=== PATIENT | female | born 1980 | race Caucasian/White ===

== ENCOUNTER 2018-02-10 22:42 | Emergency (ER) | payer OTHER, SELFPAY ==
[2018-02-10 22:43] VITALS: BP 167/109; PULSE 96; RESP 20; TEMP 36.6; O2SAT 96; BMI 56.7
--- NOTE | 2018-02-10 23:37 | ED.VISSUMM ---
- ER Visit Summary Date of Service: 02/10/18 Chief Complaint: Back pain History of Present Illness: The patient is a 37 F who presents with lower back pain. She does have a history of prior back pain with herniated disks but states this feels somewhat different. 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 This is only mild at rest but becomes more moderate with movement. Currently it is 4 out of 10 but when she goes to move it is slightly worse at 5-6 out of 10. She denies any fevers abdominal pain radiation to legs numbness tingling weakness. Physical Examination: Afebrile vitals are unremarkable Patient is resting comfortably Patient does have some paraspinal lumbar tenderness no midline tenderness straight leg raise is negative bilaterally she has normal strength and sensation of lower extremities Test Results: Not indicated Emergency Department Course and Treatment: History and examination are consistent with a lumbosacral strain. I explained supportive care to the patient and she is in agreement with this plan. She will follow-up as an outpatient and was discharged home. Treatment Plan: [] Disposition: Discharge Impression: Lumbosacral strain This note was generated with [employer] dictation software. It may contain incorrect words, spelling, and punctuation that were not noted in review of the chart prior to signing ED Disposition - Plan for ED Patient: Chief Complaint: Back Referrals: Care Physician,No Primary [Primary Care Provider] -
--- NOTE | 2018-02-10 23:39 | DCINST.ED_ITS ---
ED Disposition - Plan for ED Patient: Chief Complaint: Back Instructions: ED Sprain Strain Lumbar Referrals: Care Physician,No Primary [Primary Care Provider] - Corporate,[facility] [GROUP OF PHYSICIANS] -
[2018-02-11 00:01] VITALS: PULSE 68; RESP 18; O2SAT 97
== END 2018-02-11 00:02 | disposition home or self-care (01) ==
LOC: ED 23:48
PROVIDERS: Emergency Provider Emergency Medicine
DX: S39.012A Strain of muscle, fascia and tendon of lower back, initial encounter (principal); X50.1XXA Overexertion from prolonged static or awkward postures, initial encounter; Y93.9 Activity, unspecified; Y92.9 Unspecified place or not applicable
CPT/HCPCS: 99282

== ENCOUNTER → 2018-02-12 10:43 | Outpatient (CLI) | payer OTHER, SELFPAY ==
--- NOTE | 2018-02-12 10:47 | RAD_ITS ---
STUDY: X-RAY - LUMBAR SPINE REASON FOR EXAM: Female, 37 years old. Injury at work. Pain. TECHNIQUE: 3 view(s) of the lumbar spine were obtained. COMPARISON: None FINDINGS: Normal lumbar lordosis. There is a mild levoscoliosis of the lumbar spine. There is a normal alignment of the vertebrae. There is diffuse mild demineralization with multilevel mild endplate spondylosis. There is at L5-S1 degenerative disc disease with mild disc space narrowing. There is lower lumbosacral facet mild arthrosis. There is no demonstrated fracture. There is increased colonic/rectosigmoid stool volume. RAD/Lumbar Spine 2 or 3 Views IMPRESSION: 1. Degenerative changes of the L5-S1 spine, as above. 2. No demonstrated acute osseous injury or vertebral subluxation. 3. Mild lumbar levoscoliosis. Electronically Signed: Gabino Singh MD at 11:12 EDT Tel , Service support ,
== END ==
PROVIDERS: Referring Provider Physician Assistant; Visit Provider Physician Assistant
DX: S39.012A Strain of muscle, fascia and tendon of lower back, initial encounter (principal)
CPT/HCPCS: 72100

== ENCOUNTER 2023-02-06 11:05 | Day surgery (SDC) | payer OTHER, SELFPAY ==
[2023-02-06 11:34] LABS: Internal QC Validated? YES +Cl - CLEAR BKGD; Pregnancy, Urine Negative Negative
[2023-02-06 11:40] VITALS: BP 145/89; PULSE 82; RESP 16; TEMP 36.4; O2SAT 97; BMI 54.1
[2023-02-06] MEDS: Lactated Ringers 1,000 ML 15 ML IV (11:40)
[2023-02-06 12:01] LABS: Bedside Glucose 90 mg/dL (74-106)
[2023-02-06] MEDS: Cefazolin 3 GM in 0.9% Normal Saline (100mL Bag) 100 ML IV (12:32)
[2023-02-06] MEDS: Bupivacaine Mpf 0.5% 30 ML VIAL (13:31)
[2023-02-06] MEDS: Epinephrine (1 mg/ml) 1 MG/ML VIAL ×2 (13:32)
[2023-02-06 13:51] VITALS: BP 145/89; BP 163/95; PULSE 85; RESP 16; TEMP 36.4; O2SAT 96
[2023-02-06 14:00] VITALS: BP 145/89; BP 160/96; PULSE 85; RESP 16; O2SAT 95
--- NOTE | 2023-02-06 14:04 | PCM.OPRPT ---
Report of Operation Date of Procedure: 02/06/23 Pre-Operative Diagnosis: Internal derangement right knee Post-Operative Diagnosis: none. Unable to do an arthroscopy on the knee Surgery/Procedure Performed:: Attempted right knee arthroscopy. Aborted secondary to the patients obesity. Description of Surgical Findings:: Report of Operation Date of Procedure: 02/06/2023 Preoperative Diagnosis: Right knee, internal derangement Postoperative Diagnosis: Right knee, alhaji. Unable to do an arthroscopy on this patients knee. Operation: Diagnostic and operative arthroscopy of the right knee with arthroscopic Surgeon: Dr Walter Ashton DO Anesthesia: general Anesthesiologist: Blake Mcfarlane M.D. Description of Procedure: With appropriate informed consent, the patient was taken to the operative suite. After induction of general and regional anesthesia and administration of the preoperative antibiotics, the well leg was fitted with DANETTE and SCDs and well padded. The right knee was placed into the arthroscopy leg smith, prepped and draped sterilely. The standard arthroscopy portals were pre-injected with 0.5% Marcaine with epinephrine. A lateral portal was established. The diagnostic arthroscopy was begun. The patellofemoral joint revealed The medial compartment was entered and the medial portal was established. A probe was utilized to probe the medial meniscus. There was I made a lateral portal and attempted to perform an arthroscopy on this knee. Unfortunately, there was such extensive excess soft tissue that I was unable to visualize the distal femur, the menisci or the tibia. I was able to visualize the patella. Using needle localization, an accessory suprapatellar portal was made I cleared soft-tissue with a thermal ablation wand, vut was still unable to attain visualization. The decision was made to end the procedure at this point. Thereafter, the arthroscopy instruments and fluid were removed. The portals were closed with interrupted sutures of 4-0 nylon followed by application of a sterile well-padded dressing and VELASQUEZ wrap. The patient was extubated and transferred to the PACU in stable and satisfactory condition. Walter Ashton DO Surgeon: Walter Ashton Type of Anesthesia: General Anesthesiologist: Blake Mcfarlane Admclayton VTE Documentation VTE Present on Admission: No VTE Mechan Device Prophylaxis: SCD's and Thigh High DANETTE Hose VTE Pharm Prophylaxis ordered?: No Reason prophylaxis not ordered:: Treatment Not Indicated
[2023-02-06 14:14] LABS: Bedside Glucose 103 mg/dL (74-106)
[2023-02-06 14:15] VITALS: BP 145/89; BP 167/101; PULSE 80; RESP 16; O2SAT 98
[2023-02-06 14:20] VITALS: BP 145/89; BP 162/97; PULSE 76; RESP 16; TEMP 36.6; O2SAT 96
[2023-02-06 14:45] VITALS: BP 145/89
== END 2023-02-06 15:20 | disposition home or self-care (01) ==
LOC: SDC 11:06 → AC 11:08
PROVIDERS: Anesthesiology; PCP Nurse Practitioner Family; Referring Provider Orthopaedic Surgery; Visit Provider Orthopaedic Surgery
PROC: (CPT 29870; principal; 2023-02-06 12:25)
DX: M23.91 Unspecified internal derangement of right knee (principal); E66.01 Morbid (severe) obesity due to excess calories; Z68.43 Body mass index [BMI] 50.0-59.9, adult; E11.9 Type 2 diabetes mellitus without complications; J45.909 Unspecified asthma, uncomplicated; K21.9 Gastro-esophageal reflux disease without esophagitis; I10 Essential (primary) hypertension; Z87.891 Personal history of nicotine dependence; Z53.09 Procedure and treatment not carried out because of other contraindication; S83.231D Complex tear of medial meniscus, current injury, right knee, subsequent encounter; M17.11 Unilateral primary osteoarthritis, right knee; S83.281D Other tear of lateral meniscus, current injury, right knee, subsequent encounter; M25.461 Effusion, right knee
CPT/HCPCS: 29870; 01382; 81025; 82962; J7120; J2405

== ENCOUNTER 2023-05-11 11:44 | Day surgery (SDC) | payer OTHER, SELFPAY ==
[2023-05-11] VITALS (9 sets, daily range): BP systolic 132–177; BP diastolic 79–101; PULSE 71–90; RESP 16; TEMP 36.4–36.6; O2SAT 94–100; BMI 52.9
--- OUTSIDE RECORDS SUMMARY | 2023-05-11 12:07 | XMS RPT_ITS | CCD ---
Author Name Unknown Address [address] [place] [address] Organization [facility] Care Team Providers Care Tree Trimmer Helper Name Role Phone YUDI Odom CNP, JUAN JOSE Fuller [facility] YUDI CLEANING - MARYSOL, JUAN JOSE Fuller Primary Care U navailable YUDI CLEANING - MARYSOL, JUAN JOSE Fuller Attending U navailable YUDI CLEANING - MARYOSL, JUAN JOSE Fuller Primary Care U navailable SALVATORE GRAY Attending Unavailable YUDIMAX CLEANING - MARYSOL, JUAN JOSE Fuller Primary Care U navailSALVATORE Jara Attending Unavailable YUDI CLEANING - MARYSOL, JUAN JOSE Fuller Primary Care U navailable YUDI [employer] REVENUE OFFICER - FORM SETTER SUPERVISOR, JUAN JOSE Fuller Attending U navailable YUDI [employer]. REVENUE OFFICER - FORM SETTER SUPERVISOR, JUAN JOSE Fuller Primary Care U navailable YUDI BLACK - MARYSOL, JUAN JOSE Fuller Attending U navailable Allergies Allergy Classification Reported Allergen(s) Allergy Type Date of Onset Reaction(s) Facility (7 sources) Vancomycin; Translations: [vancomycin] Drug Allergy RASH [facility] Medications Current Medications Medication Drug Class(es) Dates Sig (Normalized) Sig (Original) busPIRone hydrochloride 5 mg oral tablet (1 source) Start: 08-15-2022 End: 02-11-2023 busPIRone 5 mg oral tablet Dose : 5 mg = 1 tab(s), Oral, TID, PRN PRN Anxiety, # 90 tab(s), 5 Refill(s), Pharmacy: [facility] #[id number], ROMA, 158, cm, 08/15/22 11:18:00 EDT, Height, kg, 08/15/22 11:18:00 EDT, Dosing Weight Start Date: 08/15/22 Stop Date: 02/11/23 Status: Ordered cholecalciferol 1.25 mg oral capsule (3 sources) Vitamin D Start: 11-14-2022 End: 08-20-2023 cholecalciferol 1250 mcg (50,000 intl units) oral capsule Dose : 50,000 International_Unit = 1 cap(s), Oral, qWeek, # 13 cap(s), 1 Refill(s), Pharmacy: [facility] #[id number], Vitamin D deficiency, 159, cm, 02/20/23 7:24:00 EDT, Height, kg, 02/20/23 7:24:00 EDT, Dosing Weight Start Date: 02/21/23 Stop Date: 08/20/23 Status: Ordered Cinnamon Plus Chromium oral capsule (7 sources) Start: 08-13-2020 take 1 capsule by mouth once daily Cinnamon Plus Chromium oral capsule Dose = 1 cap(s), Oral, Daily, with biotin, 0 Refill(s) Start Date: 08/13/20 Status: Ordered citalopram 40 mg oral tablet (7 sources) Serotonin Reuptake Inhibitor Start: 08-15-2022 End: 08-19-2023 citalopram 40 mg oral tablet Dose : 40 mg = 1 tab(s), Oral, qDay, # 90 tab(s), 1 Refill(s), Pharmacy: [facility] #[id number], 159, cm, 02/20/23 7:24:00 EDT, Height, kg, 02/20/23 7:24:00 EDT, Dosing Weight Start Date: 02/20/23 Stop Date: 08/19/23 Status: Ordered Completed/Discontinued Medications Medication Drug Class(es) Dates Sig (Normalized) Sig (Original) gabapentin 300 mg oral capsule (2 sources) Anti-epileptic Agent Start: 08-12-2021 End: 08-26-2021 gabapentin 300 mg oral capsule Dose : 300 mg = 1 cap(s), Oral, BID, Fill Date: 08/12/2021 DOSE CHANGE, # 28 cap(s), 0 Refill(s), Pharmacy: [facility] Radicular pain of left lower extremity Chronic back pain, 160, cm, 08/12/21 8:41:00 EDT, Height, 146 Start Date: 08/12/21 Stop Date: 08/26/21 Status: Ordered Problems Problem Classification Problem Date Documented Date Episodic/Chronic Abdominal pain (3 sources) Epigastric pain 11-14-2022 Episodic Anxiety disorders (7 sources) Anxiety 06-18-2020 Chronic Asthma (7 sources) Asthma 06-30-2013 Chronic Diabetes mellitus without complication (3 sources) Type 2 diabetes mellitus 11-14-2022 Chronic Disorders of lipid metabolism (3 sources) Mixed hypercholesterolemia and hypertriglyceridemia 11-14-2022 Chronic Esophageal disorders (4 sources) Esophageal dysmotility; Translations: [Gastroesophageal reflux disease with hiatal hernia] 12-05-2022 Chronic Joint disorders and dislocations; trauma-related (5 sources) Subluxation of knee joint; Translations: [Tear of meniscus of knee] 08-15-2022 Episodic Results Test Name Value Interpretation Reference Range Facil ity Encounters Encounter Date Encounter Type Care Provider Facility Start: 05-02-2023 ambulatory JUAN JOSE SANTANA [employer] REVENUE OFFICER - FORM SETTER SUPERVISOR Facility:B Start: 05-02-2023 End: 05-02-2023 Patient encounter procedure SALVATORE MCNEIL [facility] Start: 02-18-2023 End: 02-19-2023 ambulatory JUAN JOSE BAGLEY [employer] REVENUE OFFICER - FORM SETTER SUPERVISOR Facility:[facility] Start: 01-25-2023 End: 01-26-2023 ambulatory JUAN JOSE BAGLEY [employer] REVENUE OFFICER - FORM SETTER SUPERVISOR Facility:[facility] Start: 01-25-2023 End: 01-25-2023 Patient encounter procedure SALVATORE MCNEIL [facility] Start: 11-25-2022 End: 11-26-2022 ambulatory JUAN JOSE BAGLEY [employer] REVENUE OFFICER - FORM SETTER SUPERVISOR Facility:[facility] Start: 11-25-2022 End: 11-25-2022 Patient encounter procedure JUAN JOSE BAGLEY [employer] REVENUE OFFICER - FORM SETTER SUPERVISOR [facility] Start: 11-04-2022 End: 11-05-2022 ambulatory JUAN JOSE Alina YUDI [employer] REVENUE OFFICER - FORM SETTER SUPERVISOR Facility:[facility] Start: 11-04-2022 End: 11-04-2022 Patient encounter procedure JUAN JOSE BAGLEY [employer] REVENUE OFFICER - FORM SETTER SUPERVISOR [facility] Start: 11-22-2021 End: 02-21-2022 Physical therapy management MICHELLE SAMPSON DO [facility] Start: 08-26-2021 End: 08-26-2021 Patient encounter procedure JUAN JOSE Alina YUDI [employer] REVENUE OFFICER - FORM SETTER SUPERVISOR [facility] Start: 07-05-2021 End: 07-09-2021 Outreach Lab ELE ALAS MD [facility] Procedures Date Procedure Procedure Detail Performing Clinician section ELE ALAS MD Rotator cuff includi ng muscles and tendons (body structure) ELE ALAS MD Immunizations Immunization Date Immunization Notes Care Provider [facility] 01-18-2009 influenza, seasonal, injectable, preservative free ELE ALAS MD [facility] Payers Date Payer Category Payer Unknown [id number] 1980 Unknown [id number] [id number] 1982 Unknown [id number] [id number] 1982 Unknown [id number] 2.16.8 [id number] 1982 Unknown [id number] 2.16.8 [id number] 1982 Unknown [id number] 2.16.8 [id number] Social History Date Type Detail Facility Start: 11-30-2018 Ex-smoker (finding) [facility] Clinical Notes 12-15-2021 to 11-25-2022 LaboratoryRadiologyLaboratoryLaboratoryRadiologyLaboratoryLaboratoryLaboratoryLa boratory Note Date & Type Note Facility 11-25-2022 Note ORIGINAL EXAMINATION: DOUBLE CONTRAST UPPER GI SERIES 11/25/2022 TECHNIQUE: Double contrast upper GI series was performed with barium and air contrast. FLUOROSCOPY DOSE AND TYPE: Radiation Exposure Index: Kerma mGy, 124 mGy. Fluoro time: 2.4 minutes. Fluoroscopic exposures: 10. COMPARISON: None HISTORY: ORDERING SYSTEM PROVIDED HISTORY: Reason for Exam: epigastric pain with cyclical vomiting & reflux FINDINGS: Assembly Loader images were obtained and show a nonobstructed bowel gas pattern. No acute process is seen on emissions testing technician images. The visualized distal esophagus is of normal caliber. A few tertiary contractions are seen on the basis of a dysmotility. There are no mucosal abnormalities seen. The gastroesophageal junction demonstrates a small sliding hiatal hernia. No stenoses or achalasia are seen.. Mild reflux to the inferior 1/3 of the esophagus is seen. The stomach is normal in appearance with no evidence for mass present. The duodenal bulb and sweep are normal. IMPRESSION: Small sliding-type hiatal hernia. Mild reflux to the inferior 1/3 of the esophagus. A few tertiary contractions of the esophagus are seen on the basis of a mild underlying dysmotility. Interpreted by: Brett Beltran MD Preliminary Report By: Brett Beltran MD Electronically signed By Brett Beltran MD Dictated Date: 11/25/2022 9:36:12 AM Prelim Date: 11/25/2022 9:40:45 AM Sign Date: 11/25/2022 9:40:45 AM Ordering Provider: JUAN JOSE BAGLEY [facility] 12-15-2021 Evaluation + Plan note Future Scheduled TestsThyroid Stimulating Hormone 12/15/21Complete Blood Count 12/15/21Lipid Profile 12/15/21Vitamin D Level 12/15/21Complete Metabolic Panel 12/15/21XR Hip Minimum 2 Views Left 08/03/21XR Hip Minimum 2 Views Left 08/12/21XR Knee 3 Views Left 08/03/21XR Knee 3 Views Left 08/12/21XR Spine Thoracic 2 Views 08/12/21XR Spine Lumbar AP/LAT 08/03/21XR Spine Lumbar W/Obliques 4 Views 08/12/21XR Spine Cervical AP/LAT 08/12/21 [facility] Evaluation + Plan note Future Appointments Appointment Date:12/16/2021 03:40:00 PM Scheduled Provider:JUAN JOSE BAGLEY APRN, CNP Location:[facility] Appointment Type:PC OV Future Scheduled TestsThyroid Stimulating Hormone 12/15/21Complete Blood Count 12/15/21Lipid Profile 12/15/21Vitamin D Level 12/15/21Complete Metabolic Panel 12/15/21 [facility] Evaluation + Plan note Future Appointments Appointment Date:12/16/2021 03:40:00 PM Scheduled Provider:JUAN JOSE BAGLEY APRN - FORM SETTER SUPERVISOR Location:[facility] Appointment Type:PC OV Future Scheduled TestsThyroid Stimulating Hormone 12/15/21Complete Blood Count 12/15/21Lipid Profile 12/15/21Vitamin D Level 12/15/21Complete Metabolic Panel 12/15/21XR Hip Minimum 2 Views Left 08/03/21XR Hip Minimum 2 Views Left 08/12/21XR Knee 3 Views Left 08/03/21XR Knee 3 Views Left 08/12/21XR Spine Thoracic 2 Views 08/12/21XR Spine Lumbar AP/LAT 08/03/21XR Spine Lumbar W/Obliques 4 Views 08/12/21XR Spine Cervical AP/LAT 08/12/21 [facility] Evaluation + Plan note Future Appointments Appointment Date:11/14/2022 08:00:00 AM Scheduled Provider:JUAN JOSE BAGLEY U[employer]. REVENUE OFFICER - FORM SETTER SUPERVISOR Location:[facility] Appointment Type:PC OV Follow Up Future Scheduled TestsLipid Profile 12/15/21Complete Metabolic Panel 12/15/21 [facility] Evaluation + Plan note Future Appointments Appointment Date:12/05/2022 08:20:00 AM Scheduled Provider:JUAN JOSE BAGLEY APRN - FORM SETTER SUPERVISOR Location:[facility] Appointment Type:PC OV Follow Up Appointment Date:02/20/2023 07:20:00 AM Scheduled Provider:JUAN JOSE BAGLEY U[employer]S. REVENUE OFFICER - FORM SETTER SUPERVISOR Location:[facility] Appointment Type:PC OV Follow Up Future Scheduled TestsCeliac Serology 11/14/22A1C Hemoglobin 02/14/23Lipid Profile 02/14/23Lipid Profile 12/15/21Vitamin D Level 02/14/23Complete Metabolic Panel 02/14/23Complete Metabolic Panel 12/15/21[facility] Send out (Blood Specimens) 11/14/22[facility] Send Out (Non-Blood Specimens) 11/14/22 [facility] Evaluation + Plan note Future Appointments Appointment Date:01/26/2023 01:20:00 PM Scheduled Provider:JUAN JOSE BAGLEY [employer]. REVENUE OFFICER - FORM SETTER SUPERVISOR Location:[facility] Appointment Type:PC OV Pre Op Appointment Date:02/20/2023 07:20:00 AM Scheduled Provider:JUAN JOSE BAGLEY U[employer]. REVENUE OFFICER - FORM SETTER SUPERVISOR Location:[facility] Appointment Type:PC OV Follow Up Future Scheduled TestsHelicobacter Pylori Antibody 12/05/22Celiac Serology 11/14/22Celiac Serology 12/05/22A1C Hemoglobin 02/14/23Lipid Profile 02/14/23Vitamin D Level 02/14/23Complete Metabolic Panel 02/14/23[facility] Send out (Blood Specimens) 11/14/22[facility] Send out (Blood Specimens) 12/05/22[facility] Send Out (Non-Blood Specimens) 11/14/22 [facility] Evaluation + Plan note Future Appointments Appointment Date:05/22/2023 03:20:00 PM Scheduled Provider:JUAN JOSE BAGLEY [employer]. REVENUE OFFICER - FORM SETTER SUPERVISOR Location:[facility] Appointment Type:PC OV Follow Up Appointment Date:07/27/2023 02:45:00 PM Scheduled Provider:DUNCAN DOWLING MD Location:[facility] Appointment Type:ENDO EMPLOYEE COMMUNICATIONS INTERN Future Scheduled TestsHelicobacter Pylori Antibody 12/05/22Celiac Serology 11/14/22Celiac Serology 12/05/22A1C Hemoglobin 05/23/23Lipid Profile 05/23/23Vitamin D Level 05/23/23Complete Metabolic Panel 05/23/23[facility] Send out (Blood Specimens) 11/14/22[facility] Send out (Blood Specimens) 12/05/22[facility] Send Out (Non-Blood Specimens) 11/14/22 [facility] course Narrative No data available for this section [facility] Discharge instructions No data available for this section [facility] Progress note No data available for this section [facility] Summary Purpose Family History No Family History Records Found Advance Directives No Advanced Directives Records Found Additional Source Comments Care Team (unrecognized sect ion and content) Personnel Name: JUAN JSOE BAGLEY APRN, CNP Address: [address] [place] [address] Care Team Personnel Name: JUAN JOSE BAGLEY APRN, CNP Position: P4 Advanced Design Assembler Member Role: Primary Care Physician Address: Address: [address] [place] [address] Care Team Related Persons Name: CITLALLI BRYANT Name: LAN BRYANT Care Team Personnel Name: JUAN JOSE BAGLEY APRN, CNP Position: P4 Advanced Design Assembler Member Role: Primary Care Physician Address: Address: [address] [place] [address] Care Team Related Persons Name: CITLALLI BRYANT Name: LAN BRYANT Care Team Personnel Name: JUAN JOSE BAGLEY APRN, CNP Position: P4 Advanced Design Assembler Member Role: Primary Care Physician Address: Address: [address] [place] [address] Care Team Related Persons Name: CITLALLI BRYANT Name: LAN BRYANT Care Team Personnel Name: JUAN JOSE BAGLEY APRN - FORM SETTER SUPERVISOR Position: P4 Advanced Design Assembler Member Role: Primary Care Physician Address: Address: [address] [place] [address] Care Team Related Persons Name: CITLALLI BRYANT Name: MANNYLAN Care Team (unrecognized sect ion and content) Care Team Personnel Name: JUAN JOSE BAGLEY U.S. REVENUE OFFICER - FORM SETTER SUPERVISOR Position: P4 Advanced Practice Nurse Member Role: Primary Care Physician Address: Address: [address] [place] [address] Care Team Related Persons Name: CITLALLI BRYANT Name: LAN BRYANT INFORMATION SOURCE (unrecogn ized section and content) FOR RECORDS PERTAINING TO PATIENTS WHO ARE OR HAVE BEEN ENROLLED IN A CHEMICAL DEPENDENCY/SUBSTANCEABUSE PROGRAM, SOME INFORMATION MAY BE OMITTED. This clinical summary was aggregated from multiple sources. Caution should be exercised in using it in the provision of clinical care. This summary normalizes information from multiple sources, and as a consequence, information in this document may materially change the coding, format and clinical context of patient data. In addition, data may be omitted in some cases. CLINICAL DECISIONS SHOULD BE BASED ON THE PRIMARY CLINICAL RECORDS. [facility] [employer] [facility]. provides no warranty or guarantee of the accuracy or completeness of information in this document.
[2023-05-11 12:37] LABS: Internal QC Validated? YES +Cl - CLEAR BKGD; Pregnancy, Urine Negative Negative; Record Kit Lot#,Urine Preg 719086
[2023-05-11] MEDS: Lactated Ringers 1,000 ML 15 ML IV (12:48)
[2023-05-11 13:06] LABS: Bedside Glucose 87 mg/dL (74-106)
[2023-05-11] MEDS: Cefazolin 2 GM in 0.9% Normal Saline (100mL Bag) 100 ML IV (14:20)
[2023-05-11] MEDS: Bupivacaine 0.5% PF 10 ML VIAL ×2 (15:35)
[2023-05-11] MEDS: Epinephrine (1 mg/ml) 1 MG/ML VIAL (15:36)
--- NOTE | 2023-05-11 15:41 | OP.PCM_ITS ---
Report of Operation Date of Procedure: 05/11/23 Pre-Operative Diagnosis: Internal derangement right knee Post-Operative Diagnosis: Diagnostic and Operative arthroscopy with partial medial and lateral meniscectomies, tricompartmental chondroplasty and removal of 7 mm x 7 mm osteocartilagenous loose body right knee Surgery/Procedure Performed:: MMT. LMT, tricompartmental OA and 7 mm x 7mm osteocartilagenous loose body lateral gutter Surgeon: Walter Ashton edge stripper: None Type of Anesthesia: General Anesthesiologist: Blake Mcfarlane Admclayton VTE Documentation VTE Present on Admission: No VTE Mechan Device Prophylaxis: SCD's VTE Pharm Prophylaxis ordered?: No Reason prophylaxis not ordered:: Treatment Not Indicated
[2023-05-11 16:17] LABS: Bedside Glucose 109 mg/dL (74-106)
== END 2023-05-11 17:50 | disposition home or self-care (01) ==
LOC: SDC 11:47 → AC 11:50
PROVIDERS: Anesthesiology; PCP Nurse Practitioner Family; Referring Provider Orthopaedic Surgery; Visit Provider Orthopaedic Surgery
PROC: (CPT 29870; principal; 2023-05-11 13:20)
DX: M23.91 Unspecified internal derangement of right knee (principal); E66.01 Morbid (severe) obesity due to excess calories; Z68.43 Body mass index [BMI] 50.0-59.9, adult; E11.9 Type 2 diabetes mellitus without complications; S83.281D Other tear of lateral meniscus, current injury, right knee, subsequent encounter; F41.9 Anxiety disorder, unspecified; F32.A Depression, unspecified; K21.9 Gastro-esophageal reflux disease without esophagitis; E78.00 Pure hypercholesterolemia, unspecified; Z87.891 Personal history of nicotine dependence; S83.231D Complex tear of medial meniscus, current injury, right knee, subsequent encounter; R03.0 Elevated blood-pressure reading, without diagnosis of hypertension
CPT/HCPCS: 29870; 01382; 81025; 82962; J7120; J2405

== ENCOUNTER 2023-09-14 06:11 | Day surgery (SDC) | payer OTHER, SELFPAY ==
[2023-09-14] VITALS (9 sets, daily range): BP systolic 152–178; BP diastolic 90–99; PULSE 70–91; RESP 16–18; TEMP 36.7–37.3; O2SAT 96–100; BMI 54.6
[2023-09-14 06:48] LABS: Internal QC Validated? YES +Cl - CLEAR BKGD; Pregnancy, Urine Negative Negative
[2023-09-14] MEDS: Lactated Ringers 1,000 ML 15 ML IV (06:50)
[2023-09-14 07:06] LABS: Bedside Glucose 127 mg/dL (74-106)
[2023-09-14] MEDS: Cefazolin 3 GM in 0.9% Normal Saline (100mL Bag) 100 ML IV (07:58)
[2023-09-14] MEDS: Epinephrine (1 mg/ml) 1 MG/ML VIAL (08:33)
[2023-09-14] MEDS: Bupiv/Epi 0.25% 30 ML Vial (08:35)
[2023-09-14 09:53] LABS: Bedside Glucose 115 mg/dL (74-106)
--- NOTE | 2023-09-14 11:01 | OP.PCM_ITS ---
Report of Operation Date of Procedure: 09/14/23 Description of Surgical Findings:: Preoperative diagnosis: Left knee lateral meniscus tear Postoperative diagnosis: Left knee lateral meniscus tear Procedure: Left knee arthroscopic partial medial and lateral meniscectomy, chondroplasty Surgeon: Jerrod Chamberlain DO Entertainment [employer] Professional: Christiane More PA-C Anesthesia: General LMA Anesthesiologist: Dr. Holguin Estimated blood loss: 2 cc IV fluids: Per anesthesia record Urine output: None recorded Specimen: None Implants: None Packing/drains: None Complications: None apparent Preoperative indications: This is a 43-year-old morbidly obese female seen in outpatient setting for left knee pain. She had mild osteoarthritic changes noted on x-ray. MRI was obtained demonstrated tearing of the medial lateral meniscus as well as chondromalacia. She failed nonoperative treatment in the form of intra-articular corticosteroid injection, home exercises, activity modification. Operative invention in the form of left knee arthroscopic medial and lateral partial meniscectomy with chondroplasty was offered. The risk and benefits, terms procedure reviewed with patient at length and he agreed to proceed. Risks included but were not limited to bleeding, infection, loss of life or limb, need for additional surgery, persistent pain, posttraumatic arthritis, neurovascular injury, stiffness, DVT or PE, risk of anesthesia. Informed consent obtained. Description of procedure: Patient identified preoperative holding her by name, correct number, and date of . The operative extremity was marked. All questions were answered to the patient satisfaction. At time of his procedure, patient brought the operative suite positioned supine on standard operating table. All bony prominences well-padded. General anesthesia was administered and LMA was placed. A well-padded pneumatic tourniquet was applied to the operative upper thigh. An arthroscopic post was placed along the lateral aspect of the operative thigh. We prepped and draped the left lower extremity in normal, sterile peak fashion. We performed timeout with all parties in attendance in agreement with the side, site, operation be performed. 3 g Ancef was administered by anesthesia staff prior to tourniquet ablation. I then exsanguinated left lower extremity with Esmarch bandage. Tourniquet was inflated to 300 mmHg for approximately 20 minutes. Esmarch was removed. Standard anterolateral portal was then established 90 degrees of flexion. Blunt tipped trocar was used to enter the knee joint. Knee was filled with normal saline with epinephrine. Arthroscope was then introduced. 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 Valgus stress was applied and medial compartment entered. Medial portal established in standard fashion. Flap tear was noted in the posterior horn medial meniscus and debrided to a stable rim with combination of baskets and shaver. Grade IV chondromalacia was noted the medial femoral condyle approximately 3 x 3 cm. ACL was then examined and was pristine. Lateral compartment was entered. Anterior horn cleavage tear was noted and debrided with a radial resector. I returned to the patellofemoral joint to perform a chondroplasty to stable chondral rim of the trochlea. The patellar margins were stable. The knee was thoroughly lavaged after debridement of the fat pad with the arthroscopic shaver. The knee was anesthetized with 30 cc total quarter percent bupivacaine with epinephrine. Portal sites were closed in interrupted [id number] fashion with 3-0 nylon suture. Bulky sterile compression system was applied. Tourniquet was deflated. Patient was safely awoken the operative suite and extubated. She was transferred to his gurwallback and subsequent to PACU in stable condition. Postoperative plan: Weightbearing, range of motion as tolerated operative knee Follow-up in 2 weeks for suture removal Physical therapy to start at 2 weeks Multimodal pain management with opioid, NSAID and Tylenol Aspirin 81 mg for DVT prophylaxis x 2 weeks Ice and elevation.
== END 2023-09-14 10:25 | disposition home or self-care (01) ==
LOC: SDC 06:11 → AC 06:13
PROVIDERS: Anesthesiology; PCP Nurse Practitioner Family; Referring Provider Student in an Organized Health Care Education/Training Program; Visit Provider Student in an Organized Health Care Education/Training Program
PROC: (CPT 29870; principal; 2023-09-14 07:40)
DX: S83.232D Complex tear of medial meniscus, current injury, left knee, subsequent encounter (principal); E66.01 Morbid (severe) obesity due to excess calories; Z68.43 Body mass index [BMI] 50.0-59.9, adult; E11.9 Type 2 diabetes mellitus without complications; M94.20 Chondromalacia, unspecified site; S83.282D Other tear of lateral meniscus, current injury, left knee, subsequent encounter; M17.12 Unilateral primary osteoarthritis, left knee; R03.0 Elevated blood-pressure reading, without diagnosis of hypertension; E78.00 Pure hypercholesterolemia, unspecified; F41.9 Anxiety disorder, unspecified
CPT/HCPCS: 29880; 01400; 81025; 82962; J7120; J2405

== ENCOUNTER → 2023-12-21 | Outpatient (CLI) | payer OTHER, SELFPAY ==
--- NOTE | 2023-12-21 15:26 | VDLE_ITS ---
Reason For Study: BLE SWELLING RIGHT LEFT GSV is normal. GSV is normal. CFV is compressible, spontaneous, phasic, CFV is compressible, spontaneous, phasic, competent and demonstrates normal competent, and demonstrates normal augmentation. augmentation. FV is compressible, spontaneous, phasic, FV is compressible, spontaneous, phasic, competent and demonstrates normal competent and demonstrates normal augmentation. augmentation. POP V is compressible, spontaneous, phasic, POP V is compressible, spontaneous, phasic, competent and demonstrates normal competent and demonstrates normal augmentation. augmentation. T/P Trunk is compressible. T/P Trunk is compressible. PTV is compressible. PTV is compressible. RT PerV is compressible. LT PerV is compressible. Procedure This is a venous duplex using B-mode, color flow and spectral Doppler. Exam performed in department. The study was technically difficult. Due to body habitus. A preliminary report was called and/or faxed to Dr. Chamberlain @ 16:00 @ [phone]. VL/Venous Duplex US - Ivan Extrem Interpretation Summary Deep veins of the bilateral lower extremities are patent and compressible segme ntally. There is no evidence of bilateral lower extremity deep vein thrombosis. The bilateral great saphenous veins appear patent and compressible segmentally. Non vascular cystic structure in the left popliteal fossa, 2.76 x 4.01 cm. Ordering Physician: Jerrod Chamberlain Referring Physician: Ashok Flores Performed By: Shey Bledsoe, LOTTIE, RVT
== END | disposition home or self-care (01) ==
LOC: CVS 15:25
PROVIDERS: PCP Nurse Practitioner Family; Referring Provider Student in an Organized Health Care Education/Training Program; Visit Provider Student in an Organized Health Care Education/Training Program
DX: R22.41 Localized swelling, mass and lump, right lower limb (principal); R22.42 Localized swelling, mass and lump, left lower limb
CPT/HCPCS: 93970